=== PATIENT | male | born 1970 | race African-American/Black ===

== ENCOUNTER 2017-04-02 22:51 | Inpatient (IN) | payer SELFPAY ==
[~2017-04-02] VITALS: Ht 177.8 cm; Wt 84.2 kg
[~2017-04-02 22:51] MED LIST: NOVOLIN N1000 UNITS SC; ULTRAM50 M1 PO
[2017-04-02] MEDS ORDERED: NOVOLOG MIX SC ×2 (23:04)
[2017-04-02] MEDS ORDERED: ANTI HYPERTENSIVE (23:05)
[2017-04-02] MEDS ORDERED: [UNRECOGNIZED DRUG - REMARK] (23:06)
[2017-04-03 00:16] LABS: HEMATOCRIT 38.5 % (39.0-50.0); HEMOGLOBIN 12.4 g/dl (14.0-18.0); IMMATURE GRANULOCYTES 0.3 % (0.0-1.0); MEAN CELL VOLUME 87.7 fL CALC (80.0-100.0); MEAN CORPUSCULAR HGB 28.2 pG CALC (26.0-32.0); MEAN CORPUSCULAR HGB CONC 32.2 g/L CALC (32.0-36.0); NEUT# 3.74 thou/uL (1.82-7.42); RED BLOOD COUNT 4.39 mill/uL (4.70-6.10); RED CELL DISTRI WIDTH 13.1 % (11.5-15.5)
[2017-04-03 00:34] LABS: ALBUMIN 4.1 g/dL (3.2-5.0); ALKALINE PHOSPHATASE 79 u/l (38-126); ANION GAP 13 (6-22 (CALC)); BILIRUBIN, TOTAL 0.3 mg/dL (0.0-1.4); BUN 23 mg/dL (9-20); BUN/CREATININE RATIO 18 (12-20 (CALC)); CALCIUM 9.5 mg/dL (8.4-10.2); CARBON DIOXIDE 27 mmol/l (22-30); CHLORIDE 103 mmol/l (95-108); CREATININE 1.3 mg/dL (0.7-1.3); GFR 59 ML/MIN (>=60 (CALC)); GFR FOR AFR.AMER. > 60 ML/MIN (>=60 (CALC)); GLUCOSE 168 mg/dL (75-110); POTASSIUM 3.9 mmol/l (3.5-5.1); SGOT/AST 31 u/l (17-59); SGPT/ALT 35 u/l (21-72); SODIUM 139 mmol/l (137-146); TOTAL PROTEIN 6.8 g/dL (6.3-8.2)
[2017-04-03 02:35] LABS: PROTHROMBIN TIME 10.7 SECONDS (9.0-12.5)
[2017-04-03 04:45] VITALS: BP 105/61
[2017-04-03 06:22] LABS: URINE BILIRUBIN - DIPSTICK NEGATIVE (NEGATIVE); URINE BLOOD DIPSTICK NEGATIVE (NEGATIVE); URINE CLARITY CLEAR; URINE COLOR YELLOW; URINE GLUCOSE - DIPSTICK NEGATIVE (NEGATIVE); URINE KETONE NEGATIVE (NEGATIVE); URINE LEUK ESTERASE NEGATIVE (Negative); URINE NITRITE - DIPSTICK NEGATIVE (Negative); URINE PH 5.5 (4.5-8.0); URINE PROTEIN - DIPSTICK NEGATIVE (NEG-TRACE); URINE UROBILINOGEN - DIPSTICK 0.2 E.U./dL (0.2)
[2017-04-03 07:13] VITALS: BP 101/53
[2017-04-03] MEDS ORDERED: GABAPENTIN300 M2 PO (09:57)
[2017-04-03] MEDS ORDERED: LISINOPRIL5 MG PO (09:58)
[2017-04-03] MEDS ORDERED: NOVOLIN 70/30 SC ×2 (11:15→11:16)
[2017-04-03 11:43] VITALS: BP 106/54
[2017-04-03 16:30] VITALS: BP 93/51
[2017-04-03 17:36] LABS: BARBITURATES NEGATIVE (NEGATIVE); COCAINE NEGATIVE (NEGATIVE); METHADONE NEGATIVE (NEGATIVE); OXCYCODONE NEGATIVE (NEGATIVE); TETRAHYDROCANNABIONOL POSITIVE (NEGATIVE); TRICYLIC ANTIDEPRESSANTS NEGATIVE (NEGATIVE)
[2017-04-03 20:00] VITALS: BP 114/60
[2017-04-04 04:03] VITALS: BP 100/57
[2017-04-04 04:51] LABS: ANION GAP 13 (6-22 (CALC)); BUN 16 mg/dL (9-20); BUN/CREATININE RATIO 13 (12-20 (CALC)); CALCIUM 9.2 mg/dL (8.4-10.2); CARBON DIOXIDE 26 mmol/l (22-30); CHLORIDE 106 mmol/l (95-108); CREATININE 1.2 mg/dL (0.7-1.3); GFR > 60 ML/MIN (>=60 (CALC)); GFR FOR AFR.AMER. > 60 ML/MIN (>=60 (CALC)); GLUCOSE 86 mg/dL (75-110); MAGNESIUM 1.9 mg/dL (1.6-2.3); POTASSIUM 4.6 mmol/l (3.5-5.1); SODIUM 140 mmol/l (137-146)
[2017-04-04 04:54] LABS: PROTHROMBIN TIME 10.7 SECONDS (9.0-12.5)
[2017-04-04 05:13] LABS: HEMATOCRIT 38.1 % (39.0-50.0); HEMOGLOBIN 12.2 g/dl (14.0-18.0); MEAN CELL VOLUME 88.8 fL CALC (80.0-100.0); MEAN CORPUSCULAR HGB 28.4 pG CALC (26.0-32.0); RED BLOOD COUNT 4.29 mill/uL (4.70-6.10); RED CELL DISTRI WIDTH 13.2 % (11.5-15.5)
[2017-04-04 08:29] VITALS: BP 108/57
[2017-04-04 16:00] VITALS: BP 114/67
[2017-04-04 19:32] VITALS: BP 116/62
[2017-04-05 04:42] VITALS: BP 100/58
[2017-04-05 05:17] LABS: INTERNATIONAL NORMALIZED RATIO 1.1 RATIO (0.7-1.3)
[2017-04-05 07:50] VITALS: BP 126/76
[2017-04-05 08:49] VITALS: BP 126/76
[2017-04-05] MEDS ORDERED: AUGMENTIN875TAB PO (09:21)
[2017-04-05] MEDS ORDERED: FLORASTOR250 M1 PO (09:21)
[2017-04-05] MEDS ORDERED: COUMADIN5 MG PO (09:21)
[2017-04-05] MEDS ORDERED: LOVENOX 6060 MG/0.6 SC (09:21)
== END 2017-04-05 13:08 | disposition home or self-care (01) | DRG 300 ==
LOC: ENPENDDIS → ED 22:51 → ED-I 04-03 03:30 → ED 04-03 03:54 → MS2 04-03 03:55
PROVIDERS: Emergency Medicine; ADMIT Internal Medicine; ATTEND Internal Medicine
DX: I82.432 Acute embolism and thrombosis of left popliteal vein (principal); L03.116 Cellulitis of left lower limb; E11.40 Type 2 diabetes mellitus with diabetic neuropathy, unspecified; I10 Essential (primary) hypertension; F17.210 Nicotine dependence, cigarettes, uncomplicated; E11.65 Type 2 diabetes mellitus with hyperglycemia; E11.628 Type 2 diabetes mellitus with other skin complications; Z86.718 Personal history of other venous thrombosis and embolism; Z79.4 Long term (current) use of insulin
CPT/HCPCS: J1650; J3370

== ENCOUNTER 2017-05-16 17:28 | Emergency (ER) | payer SELFPAY ==
[~2017-05-16] VITALS: Ht 177.8 cm; Wt 84.5 kg
[~2017-05-16 17:28] MED LIST changes: +ANTI HYPERTENSIVE; +AUGMENTIN875TAB PO; +COUMADIN5 MG PO; +FLORASTOR250 M1 PO; +GABAPENTIN300 M2 PO; +LISINOPRIL5 MG PO; +LOVENOX 6060 MG/0.6 SC; +NOVOLIN 70/30 SC; +NOVOLOG MIX SC; +[UNRECOGNIZED DRUG - REMARK]
[2017-05-16 18:27] LABS: HEMATOCRIT 38.5 % (39.0-50.0); HEMOGLOBIN 12.4 g/dl (14.0-18.0); IMMATURE GRANULOCYTES 0.2 % (0.0-1.0); MEAN CELL VOLUME 87.5 fL CALC (80.0-100.0); MEAN CORPUSCULAR HGB 28.2 pG CALC (26.0-32.0); MEAN CORPUSCULAR HGB CONC 32.2 g/L CALC (32.0-36.0); NEUT# 2.73 thou/uL (1.82-7.42); RED BLOOD COUNT 4.4 mill/uL (4.70-6.10)
[2017-05-16 18:45] LABS: INTERNATIONAL NORMALIZED RATIO 1.1 RATIO (0.7-1.3); PROTHROMBIN TIME 12.6 SECONDS (9.0-12.5)
[2017-05-16 18:48] LABS: ALBUMIN 4.4 g/dL (3.2-5.0); ALKALINE PHOSPHATASE 87 u/l (38-126); ANION GAP 14 (6-22 (CALC)); BILIRUBIN, TOTAL 0.3 mg/dL (0.0-1.4); BUN 17 mg/dL (9-20); BUN/CREATININE RATIO 14 (12-20 (CALC)); CALCIUM 9.8 mg/dL (8.4-10.2); CARBON DIOXIDE 24 mmol/l (22-30); CHLORIDE 104 mmol/l (95-108); CREATININE 1.3 mg/dL (0.7-1.3); GFR 59 ML/MIN (>=60 (CALC)); GFR FOR AFR.AMER. > 60 ML/MIN (>=60 (CALC)); GLUCOSE 118 mg/dL (75-110); POTASSIUM 4.3 mmol/l (3.5-5.1); SGOT/AST 51 u/l (17-59); SGPT/ALT 47 u/l (21-72); SODIUM 137 mmol/l (137-146); TOTAL PROTEIN 7.5 g/dL (6.3-8.2)
[2017-05-16 22:31] VITALS: BP 108/62
== END 2017-05-16 22:28 | disposition left against medical advice (07) | DRG 301 ==
LOC: ED 17:28
PROVIDERS: Emergency Medicine
DX: I82.532 Chronic embolism and thrombosis of left popliteal vein (principal); M79.605 Pain in left leg; Z79.01 Long term (current) use of anticoagulants

== ENCOUNTER 2017-10-02 13:49 | Emergency (ER) | payer SELFPAY ==
[~2017-10-02] VITALS: Ht 177.8 cm; Wt 86.0 kg
[2017-10-02 13:52] VITALS: BP 138/77
== END 2017-10-02 14:10 | disposition left against medical advice (07) | DRG 951 ==
LOC: ED 13:49 → LWOBS 14:10
DX: Z91.19 Patient's noncompliance with other medical treatment and regimen (principal)

== ENCOUNTER 2018-01-15 23:19 | Emergency (ER) | payer SELFPAY ==
[~2018-01-15] VITALS: Ht 177.8 cm; Wt 86.4 kg
[2018-01-16] MEDS ORDERED: WARFARIN SODIU2.5 MG PO (02:12)
[2018-01-16] MEDS ORDERED: LOVENOX80 MG/0.8 SC (02:12)
[2018-01-16 03:44] VITALS: BP 109/55
== END 2018-01-16 03:44 | disposition home or self-care (01) | DRG 301 ==
LOC: ED 23:19
DX: I82.402 Acute embolism and thrombosis of unspecified deep veins of left lower extremity (principal); E11.9 Type 2 diabetes mellitus without complications; I10 Essential (primary) hypertension; F17.210 Nicotine dependence, cigarettes, uncomplicated; Z79.01 Long term (current) use of anticoagulants; Z86.718 Personal history of other venous thrombosis and embolism
CPT/HCPCS: J1650

== ENCOUNTER 2018-02-13 22:18 | Emergency (ER) | payer OTHER ==
[~2018-02-13] VITALS: Ht 177.8 cm; Wt 90.0 kg
[~2018-02-13 22:18] MED LIST changes: +LOVENOX80 MG/0.8 SC; +WARFARIN SODIU2.5 MG PO
[2018-02-13] MEDS ORDERED: ACULAR LS0.4 % OD (22:53)
[2018-02-13 23:05] VITALS: BP 131/79
== END 2018-02-13 23:04 | disposition home or self-care (01) | DRG 125 ==
LOC: ED 22:18
PROC: 3E1CX8Z Irrigation of Eye using Irrigating Substance (ICD-10-PCS; principal; 2018-02-13)
DX: S05.01XA Injury of conjunctiva and corneal abrasion without foreign body, right eye, initial encounter (principal); X58.XXXA Exposure to other specified factors, initial encounter; Y93.E9 Activity, other interior property and clothing maintenance; Y92.009 Unspecified place in unspecified non-institutional (private) residence as the place of occurrence of the external cause

== ENCOUNTER 2018-04-21 23:54 | Emergency (ER) | payer OTHER ==
[~2018-04-21] VITALS: Ht 177.8 cm; Wt 88.6 kg
[~2018-04-21 23:54] MED LIST changes: +ACULAR LS0.4 % OD
[2018-04-22] MEDS ORDERED: COUMADIN10 MG PO (00:16)
[2018-04-22] MEDS ORDERED: OXYCOD/APAP1 TA4 PO (00:19)
[2018-04-22 00:41] LABS: HEMOGLOBIN 12.1 g/dl (14.0-18.0); IMMATURE GRANULOCYTES 0.3 % (0.0-1.0); MEAN CELL VOLUME 87.6 fL CALC (80.0-100.0); MEAN CORPUSCULAR HGB 27.9 pG CALC (26.0-32.0); MEAN CORPUSCULAR HGB CONC 31.8 g/L CALC (32.0-36.0); NEUT# 3.68 thou/uL (1.82-7.42); RED BLOOD COUNT 4.34 mill/uL (4.70-6.10); RED CELL DISTRI WIDTH 13.5 % (11.5-15.5)
[2018-04-22 00:53] LABS: ALBUMIN 3.7 g/dL (3.2-5.0); ALKALINE PHOSPHATASE 77 u/l (38-126); ANION GAP 13 (6-22 (CALC)); BILIRUBIN, TOTAL 0.3 mg/dL (0.0-1.4); BUN 13 mg/dL (9-20); BUN/CREATININE RATIO 11 (12-20 (CALC)); CARBON DIOXIDE 27 mmol/l (22-30); CHLORIDE 105 mmol/l (95-108); CREATININE 1.2 mg/dL (0.7-1.3); GFR > 60 ML/MIN (>=60 (CALC)); GFR FOR AFR.AMER. > 60 ML/MIN (>=60 (CALC)); POTASSIUM 4.1 mmol/l (3.5-5.1); SGOT/AST 21 u/l (17-59); SGPT/ALT 33 u/l (21-72); SODIUM 141 mmol/l (137-146); TOTAL PROTEIN 6.7 g/dL (6.3-8.2)
[2018-04-22 00:57] LABS: INTERNATIONAL NORMALIZED RATIO 1.2 RATIO (0.7-1.3); PROTHROMBIN TIME 13.1 SECONDS (9.0-12.5)
[2018-04-22] MEDS ORDERED: LORTAB 1010 MG PO (01:43)
[2018-04-22 01:53] VITALS: BP 100/55
== END 2018-04-22 01:53 | disposition home or self-care (01) | DRG 563 ==
LOC: ED 23:54
PROVIDERS: Emergency Medicine
DX: S52.024A Nondisplaced fracture of olecranon process without intraarticular extension of right ulna, initial encounter for closed fracture (principal); I82.512 Chronic embolism and thrombosis of left femoral vein; M79.604 Pain in right leg; Z79.01 Long term (current) use of anticoagulants

== ENCOUNTER 2018-06-03 13:12 | Emergency (ER) | payer OTHER ==
[~2018-06-03] VITALS: Ht 177.8 cm; Wt 90.9 kg
[~2018-06-03 13:12] MED LIST changes: +COUMADIN10 MG PO; +LORTAB 1010 MG PO; +OXYCOD/APAP1 TA4 PO
[2018-06-03] MEDS ORDERED: WARFARIN3 MG PO (13:48)
[2018-06-03] MEDS ORDERED: BENADRYL 50MG C50 MG PO (14:50)
[2018-06-03] MEDS ORDERED: PEPCID20 MG PO (14:50)
[2018-06-03] MEDS ORDERED: PREDNISONE20 MG PO (14:50)
[2018-06-03 15:12] VITALS: BP 150/89
== END 2018-06-03 15:34 | disposition home or self-care (01) ==
LOC: ED 13:12
DX: T63.441A Toxic effect of venom of bees, accidental (unintentional), initial encounter (principal); R22.0 Localized swelling, mass and lump, head; R21 Rash and other nonspecific skin eruption; E11.9 Type 2 diabetes mellitus without complications; I10 Essential (primary) hypertension; F17.210 Nicotine dependence, cigarettes, uncomplicated; Z86.718 Personal history of other venous thrombosis and embolism

== ENCOUNTER → 2018-07-25 | Outpatient (REF) | payer OTHER ==
[~2018-07-25] MED LIST changes: +BENADRYL 50MG C50 MG PO; +MOTRIN800 MG PO; +PEPCID20 MG PO; +PREDNISONE20 MG PO; +TRAMADOL HCL50 MG PO; +WARFARIN3 MG PO
[2018-07-25 11:24] LABS: HEMATOCRIT 41.8 % (39.0-50.0); HEMOGLOBIN 13.1 g/dl (14.0-18.0); IMMATURE GRANULOCYTES 0.3 % (0.0-5.0); MEAN CELL VOLUME 88.2 fL CALC (80.0-100.0); MEAN CORPUSCULAR HGB 27.6 pG CALC (26.0-32.0); MEAN CORPUSCULAR HGB CONC 31.3 g/L CALC (32.0-36.0); NEUT# 5.14 thou/uL (1.82-7.42); RED BLOOD COUNT 4.74 mill/uL (4.70-6.10); RED CELL DISTRI WIDTH 13.6 % (11.5-15.5)
[2018-07-25 12:48] LABS: PROTHROMBIN TIME 10.7 SECONDS (9.0-12.5)
== END | disposition home or self-care (01) | DRG 950 ==
LOC: LABSPEC 11:05
PROVIDERS: ATTEND Nurse Practitioner Family
DX: Z51.81 Encounter for therapeutic drug level monitoring (principal); Z79.899 Other long term (current) drug therapy